=== PATIENT | male | born 1980 | race African-American/Black ===

== ENCOUNTER 2025-06-13 23:17 | Inpatient (IN) | payer MEDICAID ==
[~2025-06-13] VITALS: Ht 177.8 cm; Wt 73.5 kg
[~2025-06-13 23:17] MED LIST: CARV12.545 MT; FURO80TA87 MT; LOSA25TA26 MT; SPIR25TA6 MT
[2025-06-13 23:18] VITALS: O2SAT 97
[2025-06-14] MEDS: PIPERACILLIN/TAZO 3.375G/50ML 50 ML IV ONE (00:13)
[2025-06-14] MEDS: SODIUM CHLORIDE 0.9% (SEPSIS BOLUS) IV ONE (00:13)
[2025-06-14] MEDS: MORPHINE SULFATE 4 MG/ML INJ (FOR IV/IM USE) IV ONE ×2 (00:16→01:43)
[2025-06-14 00:41] LABS: BASOPHILS % 0.9 % (0.0-2.0); EOSINOPHILS % 1.0 % (0.0-5.0); HEMATOCRIT. 35.7 % (42.0-52.0); HEMOGLOBIN. 10.8 g/dL (14.0-18.0); LYMPHOCYTES % 21.1 % (20.0-50.0); MEAN PLATELET VOLUME 7.1 fl (7.4-10.4); MONOCYTES % 10.8 % (2.0-8.0); NEUTROPHILS % 66.2 % (40.0-76.0); PLATELET 346 x1000/uL (130-400); RED BLOOD CELL COUNT 4.42 mill/uL (4.7-6.1); RED CELL DISTRIBUTION WIDTH 19.8 % (11.6-14.6)
[2025-06-14 00:44] LABS: CREATININE 0.9 mg/dL (0.6-1.3)
[2025-06-14 00:45] LABS: UREA NITROGEN BLOOD 14 mg/dL (9-23)
[2025-06-14 00:46] LABS: ASPARTATE AMINOTRANSFERASE 57 IU/L (<34)
[2025-06-14 00:47] LABS: BILIRUBIN DIRECT 0.4 mg/dL (<=3.0); BILIRUBIN TOTAL 0.8 mg/dL (0.1-1.0)
[2025-06-14 00:55] LABS: PROTEIN TOTAL 10.9 g/dL (6.0-8.3)
[2025-06-14 00:57] LABS: INR 1.2
[2025-06-14] MEDS: FUROSEMIDE 40MG/4ML VIAL IVP ONE (01:43)
[2025-06-14] MEDS: VANCOMYCIN 1G PREMIX 200 ML IV ONE (01:43)
[2025-06-14 02:40] VITALS: BP 134/90; PULSE 103; RESP 20; TEMP 36.7516
[2025-06-14] MEDS ORDERED: NALOXONE HCL 0.4MG/ML VIAL IV PRN (06:45)
[2025-06-14] MEDS: HYDROCODONE/ACETAMINOPHEN 10/325MG TABLET PO PRN (06:46)
[2025-06-14 08:00] VITALS: BP 103/69; PULSE 98; RESP 20; TEMP 36.1; O2SAT 99
[2025-06-14] MEDS: FUROSEMIDE 40MG/4ML VIAL IVP SCH ×2 (08:39→21:27)
[2025-06-14] MEDS: ENOXAPARIN 40MG/0.4ML SYR SUBCUT SCH (08:39)
[2025-06-14] MEDS: SPIRONOLACTONE 25MG TABLET PO SCH (08:40)
[2025-06-14] MEDS: LOSARTAN 25 MG TABLET PO SCH (08:40)
[2025-06-14] MEDS: CARVEDILOL 12.5MG TABLET PO SCH (08:40)
[2025-06-14 12:00] VITALS: BP 108/61; PULSE 98; RESP 20; TEMP 35.6; O2SAT 99
[2025-06-14 12:15] LABS: BASOPHILS % 0.9 % (0.0-2.0); EOSINOPHILS % 1.2 % (0.0-5.0); HEMATOCRIT. 29.3 % (42.0-52.0); HEMOGLOBIN. 9.1 g/dL (14.0-18.0); LYMPHOCYTES % 19.3 % (20.0-50.0); MEAN PLATELET VOLUME 6.8 fl (7.4-10.4); MONOCYTES % 12.0 % (2.0-8.0); NEUTROPHILS % 66.6 % (40.0-76.0); PLATELET 271 x1000/uL (130-400); RED BLOOD CELL COUNT 3.68 mill/uL (4.7-6.1); RED CELL DISTRIBUTION WIDTH 19.5 % (11.6-14.6)
[2025-06-14 12:31] LABS: CREATININE 0.7 mg/dL (0.6-1.3); UREA NITROGEN BLOOD 14 mg/dL (9-23)
[2025-06-14] MEDS: METOLAZONE 2.5MG TABLET PO SCH (14:29)
[2025-06-14] MEDS: PIPERACILLIN/TAZO 3.375G/50ML 50 ML IV SCH (14:29)
[2025-06-14 15:57] VITALS: BP 110/70; PULSE 81; RESP 18; TEMP 36.5; O2SAT 100
[2025-06-14 15:59] VITALS: BP 110/70; PULSE 81; RESP 20; TEMP 36.6; O2SAT 100
[2025-06-14 20:00] VITALS: BP 112/80; PULSE 105; RESP 19; TEMP 36.7; O2SAT 97
[2025-06-15 07:24] LABS: CREATININE 0.8 mg/dL (0.6-1.3); UREA NITROGEN BLOOD 16 mg/dL (9-23)
[2025-06-15 08:00] VITALS: BP 82/51; PULSE 85; RESP 18; TEMP 36.2; O2SAT 97
[2025-06-15 08:20] VITALS: BP 91/49; PULSE 81; RESP 18; O2SAT 96
[2025-06-15 11:51] VITALS: BP 77/51; PULSE 81; RESP 20; TEMP 36.6; O2SAT 99
[2025-06-15 11:55] LABS: BODY FLUID MONOCYTES 6 %
[2025-06-15 11:56] LABS: BODY FLUID RBC 2430 /cu mm (0-2000); BODY FLUID WBC 195 /cu mm (0-200)
[2025-06-15 12:25] VITALS: BP 91/47; PULSE 84; RESP 18; O2SAT 99
[2025-06-15] MEDS: FUROSEMIDE 100MG/10ML VIAL IVP SCH (14:30)
[2025-06-15 16:24] VITALS: BP 75/48; PULSE 80; RESP 20; TEMP 36.2; O2SAT 97
[2025-06-16 08:18] VITALS: BP 103/71; PULSE 85; RESP 20; TEMP 36.4; O2SAT 99
[2025-06-16 12:00] VITALS: BP 90/55; PULSE 76; RESP 18; TEMP 36.3
[2025-06-16 16:10] VITALS: BP 100/65; PULSE 82; RESP 20; TEMP 36.4; O2SAT 97
[2025-06-16 20:00] VITALS: BP 108/86; PULSE 80; RESP 19; TEMP 36.5; O2SAT 98
[2025-06-16 21:59] LABS: BASOPHILS % 1.4 % (0.0-2.0); EOSINOPHILS % 1.5 % (0.0-5.0); HEMATOCRIT. 39.3 % (42.0-52.0); HEMOGLOBIN. 12.2 g/dL (14.0-18.0); LYMPHOCYTES % 30.5 % (20.0-50.0); MEAN PLATELET VOLUME 7.3 fl (7.4-10.4); MONOCYTES % 11.2 % (2.0-8.0); NEUTROPHILS % 55.4 % (40.0-76.0); PLATELET 356 x1000/uL (130-400); RED BLOOD CELL COUNT 4.90 mill/uL (4.7-6.1); RED CELL DISTRIBUTION WIDTH 19.2 % (11.6-14.6)
[2025-06-16 22:18] LABS: CREATININE 1.0 mg/dL (0.6-1.3)
[2025-06-16 22:19] LABS: UREA NITROGEN BLOOD 16 mg/dL (9-23)
[2025-06-17] VITALS: BP 95/56; PULSE 88; RESP 19; TEMP 36.7; O2SAT 100
[2025-06-17 06:00] VITALS: BP 99/64; PULSE 90; RESP 17; TEMP 36.4; O2SAT 98
[2025-06-17 12:00] VITALS: BP 104/68; PULSE 85; RESP 20; TEMP 36.5; O2SAT 99
[2025-06-17 16:00] VITALS: BP 110/74; PULSE 86; RESP 18; TEMP 36.6; O2SAT 100
[2025-06-17 20:00] VITALS: BP 105/71; PULSE 87; RESP 19; TEMP 36.3; O2SAT 87
[2025-06-18] VITALS: BP 95/56; PULSE 88; RESP 19; TEMP 36.7; O2SAT 100
[2025-06-18 11:00] VITALS: BP 110/76; PULSE 87; RESP 20; TEMP 36.4; O2SAT 97
[2025-06-19] VITALS: BP 113/74; PULSE 98; RESP 18; TEMP 37.1; O2SAT 96
[2025-06-19] MEDS ORDERED: VANCOMYCIN 1.5GM/250ML IV NR (06:00)
[2025-06-19] MEDS: VANCOMYCIN 1.5GM PMX (XELLIA) 300 ML IV SCH (09:30)
[2025-06-19] MEDS ORDERED: LOSA25TA26 MT (11:45)
[2025-06-19] MEDS ORDERED: CARV12.545 MT (11:45)
[2025-06-19] MEDS ORDERED: SPIR25TA6 MT (11:45)
[2025-06-19] MEDS ORDERED: FURO80TA87 MT (11:45)
[2025-06-19 13:51] LABS: CREATININE 0.8 mg/dL (0.6-1.3); UREA NITROGEN BLOOD 19 mg/dL (9-23)
[2025-06-19 13:55] LABS: BASOPHILS % 0.9 % (0.0-2.0); EOSINOPHILS % 1.0 % (0.0-5.0); HEMATOCRIT. 37.8 % (42.0-52.0); HEMOGLOBIN. 11.9 g/dL (14.0-18.0); LYMPHOCYTES % 39.2 % (20.0-50.0); MEAN PLATELET VOLUME 7.2 fl (7.4-10.4); MONOCYTES % 12.9 % (2.0-8.0); NEUTROPHILS % 46.0 % (40.0-76.0); PLATELET 281 x1000/uL (130-400); RED BLOOD CELL COUNT 4.77 mill/uL (4.7-6.1); RED CELL DISTRIBUTION WIDTH 19.5 % (11.6-14.6)
[2025-06-19] MEDS ORDERED: VANCOMYCIN 750MG/150ML (BAXTER) IV SCH (15:00)
[2025-06-19 15:55] VITALS: BP 92/57; PULSE 91; RESP 18; TEMP 36.1; O2SAT 99
[2025-06-19 20:00] VITALS: BP 104/75; PULSE 98; RESP 18; TEMP 36.3; O2SAT 99
[2025-06-19] MEDS: VANCOMYCIN 1.25GM/250ML IV SCH (21:20)
[2025-06-19] MEDS: HYDROCODONE/ACETAMINOPHEN 10/325MG TABLET PO PRN (22:21)
[2025-06-20] VITALS: BP 109/74; PULSE 98; RESP 19; TEMP 36.4; O2SAT 98
[2025-06-20 04:00] VITALS: BP 111/79; PULSE 89; RESP 16; TEMP 36.7; O2SAT 98
[2025-06-20 08:00] VITALS: BP 99/67; PULSE 92; RESP 18; TEMP 36.6; O2SAT 98
[2025-06-20 21:00] VITALS: PULSE 98
== END 2025-06-21 15:08 | disposition left against medical advice (07) | DRG 194 ==
LOC: ER 23:17 → 7WST 06-14 01:13 → EDBEDREQDT 06-14 01:15 → EDBEDREQTM 06-14 01:15 → EDBEDREQ 06-14 01:15 → ENRESERV 06-14 01:48 → 7WST 06-15 18:30 → 6EST 06-20 03:56
PROVIDERS: ADMIT Internal Medicine; ATTEND Internal Medicine
PROC: 0W993ZZ Drainage of Right Pleural Cavity, Percutaneous Approach (ICD-10-PCS; principal; 2025-06-15)
DX: I11.0 Hypertensive heart disease with heart failure (principal); J96.01 Acute respiratory failure with hypoxia; I50.23 Acute on chronic systolic (congestive) heart failure; E11.621 Type 2 diabetes mellitus with foot ulcer; F19.10 Other psychoactive substance abuse, uncomplicated; Z53.29 Procedure and treatment not carried out because of patient's decision for other reasons; L97.529 Non-pressure chronic ulcer of other part of left foot with unspecified severity; L97.519 Non-pressure chronic ulcer of other part of right foot with unspecified severity; F17.210 Nicotine dependence, cigarettes, uncomplicated; Z79.899 Other long term (current) drug therapy
CPT/HCPCS: 32555; 36415; 71045; 73630; 73718; 80048; 80076; 82962; 83605; 83735; 83880; 84145; 85025; 87070; 87077; 87186; 93005; 96365; 96375; 97022; 97161; 99291; J1650; J1938; J2270; J2543; J3373; J7030